=== PATIENT | female | born 1950 | race Caucasian/White ===

== ENCOUNTER 2017-08-24 11:49 | Emergency (ER) | payer OTHER, BC ==
[~2017-08-24] VITALS: Ht 162.5 cm; Wt 69.9 kg
[~2017-08-24 11:49] MED LIST: CEFADROXIL500 M1 PO; DICLOFENAC SODI75 M7 PO; EYE DROPS FOR GLAUCO
[2017-08-24] MEDS ORDERED: ANASTROZOLE1 M1 PO (12:02)
[2017-08-24] MEDS ORDERED: TIMOLOL MALEATE5 M7 OP (12:02)
[2017-08-24] MEDS ORDERED: ZYRTEC10 M3 PO (12:03)
[2017-08-24] MEDS ORDERED: ALPHAGAN P 10 M10 M1 OPH (12:03)
[2017-08-24] MEDS ORDERED: FLONASE ALLERG9.9 ML NAS (12:04)
== END 2017-08-24 13:55 | disposition home or self-care (01) ==
LOC: ED 11:49
DX: S60.031A Contusion of right middle finger without damage to nail, initial encounter (principal); M54.6 Pain in thoracic spine; R03.0 Elevated blood-pressure reading, without diagnosis of hypertension; Z90.49 Acquired absence of other specified parts of digestive tract; Z96.653 Presence of artificial knee joint, bilateral; Z79.899 Other long term (current) drug therapy; Z88.2 Allergy status to sulfonamides; V49.59XA Passenger injured in collision with other motor vehicles in traffic accident, initial encounter; Y93.89 Activity, other specified; Y92.413 State road as the place of occurrence of the external cause; Y99.9 Unspecified external cause status

== ENCOUNTER → 2018-08-22 | Outpatient (CLI) | payer MEDICARE, OTHER ==
[~2018-08-22] MED LIST changes: +ALPHAGAN P 10 M10 M1 OPH; +ANASTROZOLE1 M1 PO; +FLONASE ALLERG9.9 ML NAS; +TIMOLOL MALEATE5 M7 OP; +ZYRTEC10 M3 PO
== END | disposition home or self-care (01) ==
LOC: CT 10:49
DX: J32.4 Chronic pansinusitis (principal)

== ENCOUNTER → 2020-10-19 | Outpatient (CLI) | payer MEDICARE, OTHER | END | disposition home or self-care (01) | LOC: COVID19 08:06 | PROVIDERS: ATTEND Nurse Practitioner Primary Care | DX: R50.9 Fever, unspecified (principal); R19.5 Other fecal abnormalities; Z20.822 Contact with and (suspected) exposure to COVID-19 ==

== ENCOUNTER 2021-01-30 09:43 | Emergency (ER) | payer MEDICARE, OTHER ==
[~2021-01-30] VITALS: Ht 162.5 cm; Wt 61.2 kg
[2021-01-30 10:30] LABS: BASO # 0.1 10*3/uL (0.0-0.1); BASO % 0.4 % (0.0-1.0); EOS # 0.3 10*3/uL (0.0-0.4); EOS % 2.1 % (1.0-4.0); HEMATOCRIT 35.2 % (37.0-47.0); LYMPH # 1.1 10*3/uL (1.3-4.4); LYMPH % 9.2 % (27.0-41.0); MEAN CELL VOLUME 91.4 fl (81.0-99.0); MEAN CORPUSCULAR HGB 30.6 pg (27.0-31.0); MEAN CORPUSCULAR HGB CONC 33.5 g/dl (33.0-37.0); MEAN PLATELET VOLUME 9.7 fl (9.6-12.3); MONO % 8.2 % (3.0-9.0); NEUT # 9.5 10*3/uL (2.3-7.9); NEUT % 79.6 % (47.0-73.0); PLATELET COUNT AUTOMATED 225 10*3/uL (130-400); RED BLOOD COUNT 3.85 10*6/uL (4.10-5.10); RED CELL DISTRI WIDTH 13.4 % (0-14.5); WHITE BLOOD COUNT 11.9 10*3/uL (4.8-10.8)
[2021-01-30 10:46] LABS: ALBUMIN 2.7 gm/dl (3.1-4.5); ALKALINE PHOSPHATASE 284 U/L (45-117); BUN 9 mg/dl (7-24); CHLORIDE 103 mmol/L (98-107); CREATININE 0.55 mg/dL (0.55-1.02); LIPASE 327 U/L (73-393); POTASSIUM 3.1 mmol/L (3.5-5.1); SGOT/AST 85 IU/L (3-35); SGPT/ALT 212 U/L (12-78); SODIUM 134 mmol/L (136-145); TOTAL PROTEIN 7.3 gm/dL (6.4-8.2)
[2021-01-30 10:51] LABS: TROPONIN I < 0.015 ng/ml (<0.045)
[2021-01-30 12:24] LABS: BILIRUBIN Negative (Negative); BLOOD Negative (Negative); CLARITY Clear (Clear); COLOR Yellow (Yellow); GLUCOSE Negative (Negative); KETONE Negative (Negative); LEUKO ESTERASE Trace (Negative); NITRITE Negative (Negative); SPECIFIC GRAVITY <= 1.005 (1.001-1.030)
[2021-01-30 13:00] LABS: BACTERIA 2+; EPITHELIAL CELLS 0-2
== END 2021-01-30 14:30 | disposition home or self-care (01) ==
LOC: ED 09:43
PROVIDERS: Emergency Medicine
DX: R50.9 Fever, unspecified (principal); R53.83 Other fatigue; Z90.49 Acquired absence of other specified parts of digestive tract; Z88.2 Allergy status to sulfonamides; Z79.899 Other long term (current) drug therapy; Z96.653 Presence of artificial knee joint, bilateral

== ENCOUNTER → 2021-02-14 | Outpatient (CLI) | payer MEDICARE, OTHER | END | disposition home or self-care (01) | LOC: CT 12:54 | PROVIDERS: ATTEND Nurse Practitioner Primary Care | DX: J98.11 Atelectasis (principal); R91.1 Solitary pulmonary nodule ==

== ENCOUNTER → 2021-04-27 | Outpatient (CLI) | payer MEDICARE | END | disposition home or self-care (01) | LOC: CT 08:53 | PROVIDERS: ATTEND Nurse Practitioner Primary Care | DX: R91.1 Solitary pulmonary nodule (principal); R05.9 Cough, unspecified; R59.9 Enlarged lymph nodes, unspecified ==

== ENCOUNTER → 2021-08-23 | Outpatient (CLI) | payer MEDICARE | END | disposition home or self-care (01) | LOC: CT 07:47 | PROVIDERS: ATTEND Nurse Practitioner Primary Care | DX: R19.00 Intra-abdominal and pelvic swelling, mass and lump, unspecified site (principal); R63.4 Abnormal weight loss ==

== ENCOUNTER 2023-07-19 14:01 | Emergency (ER) | payer MEDICARE ==
[~2023-07-19] VITALS: Ht 162.5 cm; Wt 63.5 kg
== END 2023-07-19 15:11 | disposition home or self-care (01) ==
LOC: ED 14:01
DX: S61.211A Laceration without foreign body of left index finger without damage to nail, initial encounter (principal); S60.411A Abrasion of left index finger, initial encounter; Z88.2 Allergy status to sulfonamides; Z90.49 Acquired absence of other specified parts of digestive tract; Z96.653 Presence of artificial knee joint, bilateral; Z98.890 Other specified postprocedural states; W26.9XXA Contact with unspecified sharp object(s), initial encounter; Y93.89 Activity, other specified; Y92.89 Other specified places as the place of occurrence of the external cause; Y99.8 Other external cause status

== ENCOUNTER → 2024-07-27 | Day surgery (SDC) | payer MEDICARE ==
[~2024-07-27] VITALS: Ht 162.5 cm; Wt 69.4 kg
[~2024-07-27] MED LIST changes: +PROPOFOL 200 MG/20 ML VIAL IV ONE
[2024-07-27 06:58] VITALS: BP 147/82
[2024-07-27 08:05] VITALS: BP 149/76
[2024-07-27 08:20] VITALS: BP 158/82
[2024-07-27 08:35] VITALS: BP 160/86
== END | disposition home or self-care (01) ==
LOC: SDC 07-23 08:00
PROVIDERS: ATTEND Surgery
DX: Z12.11 Encounter for screening for malignant neoplasm of colon (principal); D12.3 Benign neoplasm of transverse colon; K64.8 Other hemorrhoids; K57.30 Diverticulosis of large intestine without perforation or abscess without bleeding; M19.90 Unspecified osteoarthritis, unspecified site; Z85.3 Personal history of malignant neoplasm of breast; Z96.653 Presence of artificial knee joint, bilateral; Z90.49 Acquired absence of other specified parts of digestive tract; Z98.890 Other specified postprocedural states; Z79.899 Other long term (current) drug therapy; Z91.048 Other nonmedicinal substance allergy status; Z88.2 Allergy status to sulfonamides; Z88.8 Allergy status to other drugs, medicaments and biological substances; Z80.0 Family history of malignant neoplasm of digestive organs; Z83.3 Family history of diabetes mellitus; Z82.49 Family history of ischemic heart disease and other diseases of the circulatory system